=== PATIENT | male | born 1945 | race African-American/Black ===

== ENCOUNTER 2019-08-29 23:26 | Emergency (ER) | payer OTHER ==
[~2019-08-29] VITALS: Ht 185.4 cm; Wt 68.0 kg
[2019-08-29] MEDS ORDERED: DOES NOT KNOW MEDS (23:54)
[2019-08-30 00:36] LABS: CALCIUM 9.1 mg/dL (8.5-10.1); CREATININE 0.9 mg/dL (0.7-1.3); POTASSIUM 4.8 mmol/L (3.5-5.1)
[2019-08-30 00:46] LABS: HEMOGLOBIN 15.5 gm/dL (14.0-18.0); MCHC 33.1 g/dL (28.0-37.0); MCV 96.7 fL (80.0-100.0); RBC 4.86 mil/uL (4.50-6.00); RDW 13.1 % (10.5-14.5); WBC 5.9 thou/uL (4.0-11.0)
[2019-08-30 01:10] LABS: BE(vivo) 0 mmol/L (-2 to +3); HCO3 27.5 mmol/L (22.0-26.0); PCO2 VENOUS 55.2 mmHg (41.0-51.0); PO2 VENOUS 32.8 mmHg (35.0-45.0)
[2019-08-30 01:25] VITALS: BP 134/88
[2019-08-30] MEDS ORDERED: PREDNISONE 20 M20 M1 PO (01:29)
[2019-08-30] MEDS ORDERED: SPIRIVA RESPIMAT4 G1 INH (01:29)
[2019-08-30] MEDS ORDERED: BREO ELLIPTA 11 EACH INH (01:29)
[2019-08-30] MEDS ORDERED: PROMETH-CODEIN 65 ML PO (01:29)
== END 2019-08-30 01:48 | disposition home or self-care (01) ==
LOC: ER 23:26
PROVIDERS: Emergency Medicine Emergency Medical Services
DX: J44.1 Chronic obstructive pulmonary disease with (acute) exacerbation (principal)